=== PATIENT | female | born 1995 | race Caucasian/White ===

== ENCOUNTER 2020-08-08 18:45 | Emergency (ER) | payer OTHER, BC, SELFPAY ==
[~2020-08-08 18:45] MED LIST: Iopamidol-370 76% 500 ML 1 ML ONE
[2020-08-08] MEDS ORDERED: Boostrix 0.5 ML (Tdap) VIAL ONE (18:51)
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
[2020-08-08] MEDS ORDERED: Ondansetron PF 4 MG/2 ML Vial ONE (19:17)
[2020-08-08] MEDS ORDERED: Morphine 4 MG/ML VIAL ONE (19:17)
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
[2020-08-08] MEDS ORDERED: Bacitracin 1 PK ONE (19:45)
[2020-08-08 19:51] LABS: #Basophils 0.1 thou/uL (0.0-0.2); #Eosinphils 0.1 thou/uL (0.0-0.7); #Lymphocytes 1.9 thou/uL (1.20-3.40); #Monocytes 1.1 thou/uL (0.11-0.59); #Neutrophils 16.2 thou/uL (1.40-6.50); %Basophils 0.4 % (0.0-1.0); %Eosinophils 0.3 % (0.0-10.0); %Monocytes 5.9 % (0.0-10.0); %Neutrophils 83.4 % (42.0-75.0); Hemoglobin 14.2 g/dL (12.0-16.0); Mean Corpuscular HGB CONC 32.8 g/dL (32.0-36.0); Mean Corpuscular Hemoglobin 30.5 pg (27.0-31.0); Mean Platelet Volume 6.8 fL (7.4-10.4); Platelet Count 377 thou/uL (130-400); RBC Distribution Width 11.6 % (11.5-14.5); Red Blood Cell (RBC) Count 4.66 mill/uL (4.20-5.40); White Blood Cell (WBC) Count 19.4 thou/uL (4.8-10.8)
[2020-08-08 20:06] LABS: BHCG - Serum Negative (NEGATIVE); Pregs Control Background? CLEAR/WHITE (CLR/WHITE); Pregs Control Bar Appear? YES (CONTROL BAR)
[2020-08-08] MEDS ORDERED: Acetaminophen/Codeine 30-300mg Tablet ONE (20:08)
[2020-08-08 20:32] LABS: Albumin 4.3 g/dL (3.5-5.0)
[2020-08-08 20:33] LABS: Chloride 108 mmol/L (98-107); Potassium 3.5 mmol/L (3.5-5.1); Sodium 139 mmol/L (136-145)
[2020-08-08 20:34] LABS: Calcium 8.9 mg/dL (7.8-10.44); Glucose 98 mg/dL (70-105)
[2020-08-08 20:35] LABS: Globulin 3.2 g/dL (2.4-3.5); Protein, Total 7.5 g/dL (6.0-8.3)
[2020-08-08 20:36] LABS: Anion Gap 21 mmol/L (10-20); Carbon Dioxide 14 mmol/L (22-29)
[2020-08-08 20:37] LABS: Alkaline Phosphatase 68 U/L (40-110); Bilirubin, Total 0.8 mg/dL (0.2-1.2)
[2020-08-08 20:38] LABS: Calc. Creatinine Clearance 0 mL/min (70-130)
[2020-08-08 20:39] LABS: BUN (Urea Nitrogen) 12 mg/dL (7.0-18.7)
[2020-08-08 20:40] LABS: ALT (SGPT) 12 U/L (8-55)
[2020-08-08 20:41] LABS: Lipase 30 U/L (8-78)
[2020-08-08 21:27] LABS: AST (SGOT) 22 U/L (5-34)
[2020-08-08] MEDS ORDERED: Fentanyl 100 MCG/2 ML VIAL ONE ×2 (22:01→23:42)
== END 2020-08-09 00:34 | disposition home or self-care (01) ==
LOC: ERS 18:45
DX: S09.90XA Unspecified injury of head, initial encounter (principal); S42.402A Unspecified fracture of lower end of left humerus, initial encounter for closed fracture; S40.022A Contusion of left upper arm, initial encounter; S60.512A Abrasion of left hand, initial encounter; V89.2XXA Person injured in unspecified motor-vehicle accident, traffic, initial encounter
CPT/HCPCS: 36415; 70450; 71045; 71260; 72125; 74177; 80053; 83690; 84703; 85025; 86850; 86900; 86901; 90471; 90715; 96365; 96375; 96376; G0390; J0690; J2270; J2405; J3010; Q9967